=== PATIENT | female | born 1990 | race Caucasian/White ===

== ENCOUNTER 2022-01-12 21:44 | Emergency (ER) | payer MEDICAID ==
[~2022-01-12] VITALS: Ht 157.5 cm; Wt 70.5 kg
[2022-01-12 21:50] VITALS: BP 133/78
== END 2022-01-13 01:15 | disposition left against medical advice (07) ==
LOC: ER 21:45
DX: M79.672 Pain in left foot (principal); Z53.21 Procedure and treatment not carried out due to patient leaving prior to being seen by health care provider
CPT/HCPCS: 73630

== ENCOUNTER 2024-02-08 12:33 | Emergency (ER) | payer MEDICAID ==
[~2024-02-08] VITALS: Ht 157.5 cm; Wt 58.9 kg
[2024-02-08 13:31] VITALS: BP 123/82; PULSE 102; RESP 14; TEMP 97.7; O2SAT 0
[2024-02-08] MEDS ORDERED: NAPR-56 PO (16:13)
== END 2024-02-08 16:39 | disposition home or self-care (01) ==
LOC: ER 12:33
DX: S06.0X0A Concussion without loss of consciousness, initial encounter (principal); S30.0XXA Contusion of lower back and pelvis, initial encounter; Z88.2 Allergy status to sulfonamides; Z88.1 Allergy status to other antibiotic agents; Y08.89XA Assault by other specified means, initial encounter; Y93.89 Activity, other specified; Y92.89 Other specified places as the place of occurrence of the external cause; Y99.8 Other external cause status
CPT/HCPCS: 70450; 71111; 72110; 99284